=== PATIENT | male | born 1965 | race Caucasian/White ===

== ENCOUNTER 2017-02-02 19:27 | Emergency (ER) | payer OTHER, MEDICARE ==
[~2017-02-02] VITALS: Ht 170.2 cm; Wt 81.6 kg
[2017-02-02 19:27] VITALS: BP_SYST 169
[~2017-02-02 19:27] MED LIST: ESCI10TA PO; LEVE500T13 PO
--- NOTE | 2017-02-02 20:32 | NUR ---
Placed in room h1 . To gown for exam. Side rails up. Report given to MIKE Gray.
--- NOTE | 2017-02-02 20:45 | NUR ---
Patient brought in BLS for ETOH. Patient urinated on himself in the hallway, follows commands, AAO x3, sleeping in bed. Vital signs stable. Patient has history of ETOH and Head injury received treatment from [facility] yesterday. No acute distress noted. Will continue to monitor.
--- NOTE | 2017-02-02 21:00 | NUR ---
ER at bedside examining patient.
[2017-02-02] MEDS ORDERED: FOLIC ACID 1 MG, THIAMINE HCL 100 MG, MAGNESIUM SULFATE 1 GM, MVI 10 ML in NACL 0.9% 1,... IV ONE (21:13)
--- NOTE | 2017-02-02 21:30 | NUR ---
Unable to start patient IV at this time. Tried two times, no success. Reported to Md and charge nurse.
--- NOTE | 2017-02-02 22:00 | NUR ---
IV start attempt by MIKE rocha. No success.
[2017-02-02] MEDS ORDERED: FOLIC ACID 5 MG/ML VIAL IV ONE (22:21)
[2017-02-02] MEDS ORDERED: MAGNESIUM SULFATE 1 GM/2 ML VIAL ONE (22:21)
[2017-02-02] MEDS ORDERED: THIAMINE HCL 100 MG/ML VIAL ONE (22:21)
[2017-02-02] MEDS ORDERED: MVI 10 ML VIAL IV ONE (22:21)
--- NOTE | 2017-02-02 22:45 | NUR ---
IV access attempt by MIKE Rivera. No success. notified.
--- NOTE | 2017-02-02 23:45 | NUR ---
Patient resting quietly. No acute distress noted. Vital signs within normal range.
--- NOTE | 2017-02-03 00:45 | NUR ---
Patient resting quietly. No acute distress noted. Vital signs within normal range.
--- NOTE | 2017-02-03 01:45 | NUR ---
Patient resting quietly. No acute distress noted. Vital signs within normal range.
--- NOTE | 2017-02-03 03:00 | NUR ---
Report given to MIKE Rivera. All care endorsed.
--- NOTE | 2017-02-03 04:04 | NUR ---
PT WALKED TO BATHROOM AMBULATING WELL, GAIT STEADY.
--- NOTE | 2017-02-03 05:00 | NUR ---
Patient resting quietly. No acute distress noted. Vital signs within normal range.
--- NOTE | 2017-02-03 06:30 | NUR ---
Patient given written and verbal discharge instructions and verbalizes understanding. ER MD discussed with patient the results and treatment provided. Patient in stable condition. ID arm band removed. NO Rx given. Patient educated on pain management and to follow up with PMD. Pain Scale 0/10. Opportunity for questions provided and answered.
[2017-02-03 06:50] VITALS: BP_SYST 123
== END 2017-02-03 06:50 | disposition home or self-care (01) ==
LOC: SED 19:27
DX: G92 Toxic encephalopathy (principal); F10.229 Alcohol dependence with intoxication, unspecified; I10 Essential (primary) hypertension; Y90.7 Blood alcohol level of 200-239 mg/100 ml
CPT/HCPCS: 99283; J3411; J3475; J3490; J7030